=== PATIENT | male | born 1960 | race American Indian/Alaskan Native ===

== ENCOUNTER 2020-02-09 21:38 | Emergency (ER) | payer SELFPAY ==
[2020-02-09] MEDS ORDERED: IBUPROFEN 400 MG TAB PO ONE (23:24)
[2020-02-09] MEDS ORDERED: ACETAMINOPHEN 325 MG TAB PO ONE (23:24)
--- NOTE | 2020-02-09 23:30 | Emergency Department Report ---
ED General Adult HPI - General Chief complaint: High BP Stated complaint: HYPERTENSION, HEADACHE Time Seen by Provider: 02/09/20 22:58 PUI?: No Source: patient, RN notes reviewed Mode of arrival: Ambulatory Limitations: No Limitations - History of Present Illness Initial comments: Patient is a pleasant 59-year-old gentleman who is not known to myself previously, has a history of hypertension and typically follows with a physician in [place]. He does not have cough, fever, or confirmed exposure to coronavirus. 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 He presents to the ER with a complaint of nontraumatic bilateral trapezius and paracervical muscular pain, and occipital headache pain. The headache has been present intermittently for the past week. Headache is not described as sudden or thunderclap in nature. It is not maximal in intensity at the onset. It is not the worst headache of his life. Patient reports that he gets headaches like this every week quite often. The patient reports doing heavy lifting at work. There is no recent massage therapy, chiropractic manipulation, loss of vision, jaw claudication, exposure to carbon monoxide, no fever, no neck stiffness, and no recent motor vehicle accident. The patient has not taken any [id number] medications for this headache. He denies additional injuries and denies additional medical complaints. He does report erratic sleep hygiene after working overnight shift. The muscular headache pain decreases with rest, does not radiate anywhere, and increases with palpation and range of motion of the trapezius and paracervical muscles. -: Gradual, days(s), week(s), month(s) Location: head, neck Quality: other Consistency: other Improves with: other Worsens with: other Associated Symptoms: other Treatments Prior to Arrival: other - Related Data Previous Rx's Medication Instructions Recorded Last Taken Type Acetaminophen [Non-Aspirin Extra 500 mg PO Q6HR PRN #30 tablet 02/09/20 Unknown Rx Strength] Ibuprofen [Motrin] 600 mg PO Q8H PRN #30 tablet 02/09/20 Unknown Rx Allergies Allergy/AdvReac Type Severity Reaction Status Date / Time No Known Allergies Allergy Unverified 02/09/20 21:52 ED Review of Systems ROS: Stated complaint: HYPERTENSION, HEADACHE Other details as noted in HPI Comment: All other systems reviewed and negative (See history of present illn ess) Musculoskeletal: myalgia Neurological: headache. denies: weakness, numbness, paresthesias, confusion, abnormal gait, vertigo ED Past Medical Hx - Past Medical History Previous Medical History?: Yes Hx Hypertension: Yes Additional medical history: rectal ca, 2008 sx and radiation, now in remission - Surgical History Past Surgical History?: Yes Additional Surgical History: rectal sx 2007 - Social History Smoking Status: Current Every Day Smoker Substance Use Type: None - Medications Home Medications: Home Medications Medication Instructions Recorded Confirmed Last Taken Type Acetaminophen [Non-Aspirin Extra 500 mg PO Q6HR PRN #30 tablet 02/09/20 Unknown Rx Strength] Ibuprofen [Motrin] 600 mg PO Q8H PRN #30 tablet 02/09/20 Unknown Rx ED Physical Exam - General Limitations: No Limitations General appearance: alert, in no apparent distress - Head Head exam: Present: atraumatic, normocephalic, other (There is no temporal tenderness) - Eye Eye exam: Present: normal appearance, PERRL, EOMI, other (Visual acuity intact to finger counting, color perception and reading at a close distance). Absent: nystagmus - ENT ENT exam: Present: normal exam, normal orophraynx, mucous membranes moist, normal external ear exam - Neck Neck exam: Present: normal inspection, tenderness (There is reproducible trapezius and paracervical muscular tenderness.), full ROM. Absent: meningismus, lymphadenopathy - Respiratory Respiratory exam: Present: normal lung sounds bilaterally. Absent: respiratory distress - Cardiovascular Cardiovascular Exam: Present: regular rate, normal rhythm, normal heart sounds. Absent: bradycardia, tachycardia, irregular rhythm, systolic murmur, diastolic murmur, rubs, gallop - GI/Abdominal GI/Abdominal exam: Present: soft, normal bowel sounds. Absent: distended, tenderness, guarding, rebound, rigid, pulsatile mass - Rectal Rectal exam: Present: deferred - Extremities Exam Extremities exam: Present: normal inspection, full ROM, other (2+ pulses noted in the bilateral upper and lower extremities. There is no long bony tenderness. The pelvis is stable, the muscular compartments are soft.). Absent: pedal edema, joint swelling, calf tenderness - Back Exam Back exam: Present: normal inspection, full ROM. Absent: tenderness, CVA tenderness (R), CVA tenderness (L), muscle spasm, paraspinal tenderness, vertebral tenderness - Neurological Exam Neurological exam: Present: alert, oriented X3, normal gait, other (no facial droop. Tongue midline. Extraocular movements intact bilaterally. Facial sensation intact to light touch in V1, V2, V3 distribution bilaterally. 5 and a 5 strength in 4 extremities. Sensation intact to light touch in 4 extremities. There is no facial droop. There is no past-pointing. There is normal gait. There is no pronator drift. There is normal [id number].). Absent: motor sensory deficit - Psychiatric Psychiatric exam: Present: normal affect, normal mood - Skin Skin exam: Present: warm, dry, intact, normal color. Absent: rash ED Course Vital Signs 02/09/20 21:44 Temperature 98.3 F Pulse Rate 77 Respiratory 20 Rate Blood Pressure 130/90 O2 Sat by Pulse 97 Oximetry ED Medical Decision Making - Lab Data Vital Signs 02/09/20 21:44 Temperature 98.3 F Pulse Rate 77 Respiratory 20 Rate Blood Pressure 130/90 O2 Sat by Pulse 97 Oximetry - Medical Decision Making Differential diagnosis, including but not limited to: Muscular headache, tension headache, migraine headache, poor sleep hygiene Assessment and plan: 59-year-old gentleman with muscular trapezius headache, who is afebrile with reassuring vital signs with a GCS of 15, NIH score of 0, with chronic headache, without any significant red flags historical elements. He is afebrile with reassuring vital signs. Physical exam remarkable for reproducible trapezius and paracervical muscular tenderness. There is no carotid bruit. We will treat his headache supportively and symptomatically, discussed the need to avoid heavy lifting, to participate in proper sleep hygiene, and he can follow-up with an outpatient primary care doctor. Critical care attestation.: If time is entered above; I have spent that time in minutes in the direct care of this critically ill patient, excluding procedure time. ED Disposition Clinical Impression: Trapezius strain Qualifiers: Encounter type: initial encounter Laterality: unspecified laterality Qualified Code(s): S46.819A - Strain of other muscles, fascia and tendons at shoulder and upper arm level, unspecified arm, initial encounter Disposition: - TO HOME OR SELFCARE Is pt being admited?: No Does the pt Need Aspirin: No Condition: Stable Additional Instructions: Rest, avoid heavy lifting, and avoid strenuous physical activities. Patient may take the prescribed pain medications as needed and directed. Make certain to get at least 7 to 8 hours of good quality uninterrupted sleep each evening. Follow-up with a primary care doctor within the next 4 to 6 weeks. Return to the emergency room right away with new, worsened or different symptoms not present on the initial emergency room evaluation. Do not touch hands to face, eyes, mouth, as soon as the patient gets home, wash all clothing with hot water and soap, and take a bath or shower right away, with water and soap. Referrals: SEJAL DIANA MD [Staff Physician] - 7-10 days Forms: Work/School Release Form(ED)
[2020-02-09 23:51] VITALS: BP 123/59
== END 2020-02-10 | disposition home or self-care (01) ==
LOC: ED 21:38
DX: S46.912A Strain of unspecified muscle, fascia and tendon at shoulder and upper arm level, left arm, initial encounter (principal); S46.911A Strain of unspecified muscle, fascia and tendon at shoulder and upper arm level, right arm, initial encounter; I10 Essential (primary) hypertension; F17.200 Nicotine dependence, unspecified, uncomplicated; Z98.890 Other specified postprocedural states; Z79.899 Other long term (current) drug therapy; X50.0XXA Overexertion from strenuous movement or load, initial encounter; Y93.89 Activity, other specified; Y92.89 Other specified places as the place of occurrence of the external cause; Y99.8 Other external cause status
CPT/HCPCS: 99283